=== PATIENT | female | born 1950 | race Caucasian/White ===

== ENCOUNTER → 2024-06-23 | Outpatient (CLI) | payer MEDICARE, SELFPAY ==
[2024-06-23 11:31] LABS: eGFR 58 See Note
== END | disposition home or self-care (01) ==
LOC: COPL 10:22
PROVIDERS: PCP Physician Assistant; Referring Provider Colon & Rectal Surgery; Visit Provider Colon & Rectal Surgery
DX: N18.9 Chronic kidney disease, unspecified (principal)
CPT/HCPCS: 36415; 82565

== ENCOUNTER → 2024-06-27 | Outpatient (CLI) | payer MEDICARE, SELFPAY ==
--- NOTE | 2024-06-27 13:30 | XR_ITS ---
Examination: Abdomen AP single view Technique: AP portable supine abdomen, single view Exam date and time: June 27, 2024 1359 hours INDICATIONS: Abdominal pain one year post colonoscopy FINDINGS: Moderate stool throughout the colon No obstruction No free air Surgical clips upper right abdomen Suspicious for 6 mm right renal calculus IMPRESSION: Suspicious for a 6 mm right renal calculus, consider renal sonography follow-up
== END | disposition home or self-care (01) ==
LOC: CDIM 13:17
PROVIDERS: PCP Family Medicine; Referring Provider Physician Assistant; Visit Provider Physician Assistant
DX: R10.9 Unspecified abdominal pain (principal)
CPT/HCPCS: 74018

== ENCOUNTER → 2024-07-07 | Outpatient (CLI) | payer MEDICARE, SELFPAY ==
[2024-07-07 11:06] LABS: Basophils % (Auto) 0 % (0-2.5); Eosinophils % (Auto) 1 % (0-10); Hematocrit 39.3 % (36.0-46.0); Hemoglobin 12.7 g/dL (12.0-16.0); Immature Granulocytes % (Auto) 0 % (0-0); Immature Granulocytes Auto 0.02 Thou/mm3 (0.00-0.00); Lymphocytes # (Auto) 1.2 Thou/mm3 (1.0-4.8); Lymphocytes % (Auto) 21 % (10-50); Mean Corpuscular HGB Conc 32.3 g/dl (31.0-37.0); Mean Corpuscular Hemoglobin 28.3 pg (25.0-35.0); Mean Corpuscular Volume 88 fL (80-100); Monocytes # (Auto) 0.5 Thou/mm3 (0.0-0.8); Monocytes % (Auto) 10 % (0-12); Neutrophils # (Auto) 3.8 Thou/mm3 (1.8-7.7); Neutrophils % (Auto) 68 % (37-80); Nucleated Red Blood Cell % 0 /100 WBC (0); Platelet Count 251 Thou/mm3 (140-440); RDW Standard Deviation 45.1 fL (36.4-46.3); Red Blood Count 4.48 Miln/mm3 (4.00-5.20); White Blood Count 5.6 Thou/mm3 (3.6-11.0)
[2024-07-07 11:27] LABS: Alanine Aminotransferase 14 U/L (10-49); Albumin, Serum 4.3 gm/dL (3.4-4.8); Albumin/Globulin Ratio 1.6 (1.2-2.2); Alkaline Phosphatase 138 U/L (46-116); Anion Gap 9 (7-16); Aspartate Amino Transferase 13 U/L (0-34); BUN/Creatinine Ratio 18 Ratio (12-20); Bilirubin,Total 1.1 mg/dL (0.3-1.2); Blood Urea Nitrogen 18 mg/dL (9-23); Calcium 9.7 mg/dL (8.3-10.6); Calcium (Corrected) 9.7 mg/dL (8.5-10.1); Carbon Dioxide 27.1 mMol/L (20.0-31.0); Chloride 108 mMol/L (98-107); Globulin 2.7 gm/dL (2.3-3.5); Glucose 109 mg/dL (74-106); Osmolality,Calculated 289 (275-295); Sodium 144 mMol/L (136-145); Thyroid Stimulating Hormone 2.57 uIU/mL (0.55-4.78); eGFR 58 See Note
== END | disposition home or self-care (01) ==
LOC: COPL 09:59
PROVIDERS: PCP Family Medicine; Referring Provider Physician Assistant; Visit Provider Physician Assistant
DX: D35.02 Benign neoplasm of left adrenal gland (principal); R03.0 Elevated blood-pressure reading, without diagnosis of hypertension; R00.0 Tachycardia, unspecified; F41.9 Anxiety disorder, unspecified
CPT/HCPCS: 36415; 80053; 84443; 85025

== ENCOUNTER → 2024-07-10 | Outpatient (CLI) | payer MEDICARE, SELFPAY ==
[2024-07-20 13:49] LABS: Cat VMA Urine Volume, 24Hr 1800 mL
[2024-07-21 06:37] LABS: Calculated Total (E+NE) 13 mcg/24 h (26-121); Creatinine, 24-Hour Urine 0.93 g/24 h (0.50-2.15); Dopamine, 24 hr Urine <18 mcg/24 h (52-480); Epinephrine, 24 hr Urine <4 mcg/24 h (2-24); Norepinephrine, 24 hr Ur 13 mcg/24 h (15-100)
== END | disposition home or self-care (01) ==
LOC: SLDO 10:08
PROVIDERS: PCP Physician Assistant; Referring Provider Physician Assistant; Visit Provider Physician Assistant
DX: R03.0 Elevated blood-pressure reading, without diagnosis of hypertension (principal); R00.0 Tachycardia, unspecified; F41.9 Anxiety disorder, unspecified; D35.02 Benign neoplasm of left adrenal gland
CPT/HCPCS: 36415; 82384; 82570

== ENCOUNTER → 2024-07-20 | Outpatient (CLI) | payer MEDICARE, SELFPAY ==
[2024-07-25 06:43] LABS: Aldosterone* 6 ng/dL
[2024-07-28 06:31] LABS: Renin Activity, Plasma* 1.09 ng/mL/h (0.25-5.82)
== END | disposition home or self-care (01) ==
PROVIDERS: PCP Physician Assistant; Referring Provider Internal Medicine Cardiovascular Disease; Visit Provider Internal Medicine Cardiovascular Disease
DX: I10 Essential (primary) hypertension (principal); D35.00 Benign neoplasm of unspecified adrenal gland
CPT/HCPCS: 36415; 82088; 84244